=== PATIENT | female | born 1960 | race Caucasian/White ===

== ENCOUNTER 2018-02-13 19:31 | Emergency (ER) | payer MEDICAID, OTHER ==
[~2018-02-13] VITALS: Ht 157.5 cm; Wt 111.1 kg
[2018-02-13 19:34] VITALS: BP 123/79
[2018-02-13 21:11] LABS: Basophils # (auto) 0 uL; Basophils % (auto) 0.4 % (0.0-2.0); Eosinophils # (auto) 0 uL; Eosinophils % (auto) 0.6 % (0.0-7.0); Hematocrit 37.9 % (36.0-46.0); Hemoglobin 12.4 g/dL (12.2-16.2); Lymphocytes # (auto) 0.6 uL; Mean Corpuscular Hemoglobin 27.3 pg (28.0-32.0); Mean Corpuscular Hgb Conc. 32.8 g/dL (32.0-36.0); Mean Corpuscular Volume 83.3 fL (80.0-100.0); Monocytes # (auto) 0.5 uL; Monocytes % (auto) 6.6 % (0.0-12.0); Neutrophils # (auto) 6.9 uL; Neutrophils % (auto) 85.4 % (37.0-80.0); Nucleated Red Blood Cells % 0.1 %; Platelet Count (auto) 344 10^3/uL (140-450); Red Blood Cells 4.55 10^6/uL (4.0-5.20); Red Cell Distribution Width 14.5 % (11.8-14.3); White Blood Cell 8.1 10^3/uL (4.4-10.8)
[2018-02-13 21:19] LABS: INR 1.03 (0.9-1.15); Partial Thromboplastin Time 33.6 sec (23.78-33.04)
[2018-02-13 21:41] LABS: Alanine Aminotransferase 13 U/L (13-56); Albumin 2.8 g/dL (3.4-5.0); Alkaline Phosphatase 74 U/L (45-117); Anion Gap 9 (5-15); Aspartate Aminotransferase 10 U/L (15-37); BUN/Creatinine Ratio 19.4; Bilirubin, Total 0.4 mg/dL (0.2-1.0); Blood Urea Nitrogen 13 mg/dL (7-18); Calcium 8.5 mg/dL (8.5-10.1); Carbon Dioxide 22 mmol/L (21-32); Chloride 107 mmol/L (98-107); GFR African American 116 mL/min; GFR Non-African American 96 mL/min; Glucose 96 mg/dL (74-106); Potassium 3.9 mmol/L (3.5-5.1); Sodium 138 mmol/L (136-145); Total Protein 8.3 g/dL (6.4-8.2)
== END 2018-02-14 00:28 | disposition left against medical advice (07) ==
LOC: EDBD 19:31 → ER 19:31
DX: R53.1 Weakness (principal); Z53.21 Procedure and treatment not carried out due to patient leaving prior to being seen by health care provider
CPT/HCPCS: 36415; 80053; 83735; 83880; 84484; 85025; 85610; 85730; 93005

== ENCOUNTER 2018-05-25 23:53 | Inpatient (IN) | payer MEDICAID ==
[~2018-05-25] VITALS: Ht 157.5 cm; Wt 100.5 kg
[2018-05-26 01:46] LABS: Basophils # (auto) 0.1 uL; Basophils % (auto) 0.7 % (0.0-2.0); Hemoglobin 12.6 g/dL (12.2-16.2); Lymphocytes # (auto) 0.7 uL
[2018-05-26 01:48] LABS: Eosinophils # (auto) 0.1 uL; Eosinophils % (auto) 1.5 % (0.0-7.0); Hematocrit 38.9 % (36.0-46.0); Lymphocytes % (auto) 7.1 % (10.0-50.0); Mean Corpuscular Hemoglobin 27.3 pg (28.0-32.0); Mean Corpuscular Hgb Conc. 32.4 g/dL (32.0-36.0); Mean Corpuscular Volume 84.1 fL (80.0-100.0); Monocytes # (auto) 0.5 uL; Monocytes % (auto) 5.2 % (0.0-12.0); Neutrophils # (auto) 8.4 uL; Neutrophils % (auto) 85.5 % (37.0-80.0); Platelet Count (auto) 489 10^3/uL (140-450); Red Blood Cells 4.63 10^6/uL (4.0-5.20); Red Cell Distribution Width 16.7 % (11.8-14.3); White Blood Cell 9.9 10^3/uL (4.4-10.8)
[2018-05-26 02:02] LABS: Alanine Aminotransferase 13 U/L (13-56); Albumin 2.6 g/dL (3.4-5.0); Anion Gap 13 (5-15); Aspartate Aminotransferase 12 U/L (15-37); BUN/Creatinine Ratio 7.8; Blood Urea Nitrogen 30 mg/dL (7-18); Carbon Dioxide 19 mmol/L (21-32); Chloride 105 mmol/L (98-107); GFR African American 15 mL/min; GFR Non-African American 13 mL/min; Glucose 114 mg/dL (74-106); Sodium 137 mmol/L (136-145)
[2018-05-26 02:06] LABS: Alkaline Phosphatase 79 U/L (45-117); Bilirubin, Total 0.7 mg/dL (0.2-1.0); Total Protein 8.3 g/dL (6.4-8.2)
[2018-05-26 04:44] LABS: Urine Amorphous Crystal MOD /hpf (None Seen); Urine Bacteria MANY /hpf (None Seen); Urine Blood 1+ /uL (Negative); Urine Mucus FEW (None Seen); Urine Specific Gravity 1.023 (1.001-1.035); Urine WBC 42 /hpf (0 - 5)
[2018-05-26] MEDS ORDERED: methylPREDNISolone SOD SUCC 125 MG/2 ML VL IV ONE (06:00)
[2018-05-26] MEDS ORDERED: ACETAMINOPHEN 325 MG TAB PO PRN (06:00)
[2018-05-26] MEDS ORDERED: HYDROcodone-ACET 5/325MG TAB PO PRN (06:00)
[2018-05-26] MEDS: cefTRIAXone 1GM/10ml IVPUSH 10 ML IV SCH (09:05)
[2018-05-26 09:48] LABS: Protein, Urine 264.4 mg/dL (0.0-11.9)
[2018-05-26] MEDS: PANTOPRAZOLE 40 MG TAB PO SCH (10:26)
[2018-05-26 11:40] LABS: Hepatitis A Ab IgM Negative
[2018-05-26 11:50] LABS: Hepatitis C Antibody Negative (Negative)
[2018-05-26 12:00] VITALS: BP 116/63
[2018-05-26 13:40] LABS: BUN/Creatinine Ratio 10.9; Calcium 8.9 mg/dL (8.5-10.1); Potassium 4.1 mmol/L (3.5-5.1)
[2018-05-26] MEDS: SODIUM CHLORIDE 0.9% 1,000 ML IV SCH ×2 (14:00→20:50)
[2018-05-26 14:18] LABS: INR 1.04 (0.9-1.15); Partial Thromboplastin Time 33.4 sec (23.78-33.04); Prothrombin Time 11.1 sec (9.27-12.13)
[2018-05-26 16:35] VITALS: BP 110/57
[2018-05-26 17:36] LABS: Amphetamine Screen, Urine POSITIVE (NEGATIVE); Barbiturate Scree,Urine NEGATIVE (NEGATIVE); Benzodiazephine Screen, Urine NEGATIVE (NEGATIVE); Cannabinoid Screen, Urine NEGATIVE (NEGATIVE); Cocaine Screen, Urine NEGATIVE (NEGATIVE); Opiate Scree,Urine NEGATIVE (NEGATIVE); Phencyclidine Screen, Urine NEGATIVE (NEGATIVE)
[2018-05-26 20:47] LABS: Hepatitis B Surface Antigen Negative (Negative)
[2018-05-26 20:48] LABS: Hepatitis B Core IgM Negative
[2018-05-26] MEDS: TEMAZEPAM 15 MG CAP PO PRN (20:50)
[2018-05-26] MEDS: ONDANSETRON HCL 4 MG/2 ML VIAL IV PRN (20:51)
[2018-05-26] MEDS: MORPHINE SULFATE 4 MG/ML SYR/VIAL IV PRN (20:51)
[2018-05-26 23:29] VITALS: BP 113/63
[2018-05-27 05:58] VITALS: BP 104/68
[2018-05-27 06:42] LABS: Basophils # (auto) 0 uL; Eosinophils # (auto) 0 uL; Hemoglobin 11.3 g/dL (12.2-16.2); Lymphocytes # (auto) 0.7 uL; Mean Corpuscular Volume 84.2 fL (80.0-100.0); Monocytes # (auto) 0.9 uL
[2018-05-27 06:44] LABS: Basophils % (auto) 0.1 % (0.0-2.0); Hematocrit 34.3 % (36.0-46.0); Lymphocytes % (auto) 4.5 % (10.0-50.0); Mean Corpuscular Hemoglobin 27.8 pg (28.0-32.0); Mean Corpuscular Hgb Conc. 32.9 g/dL (32.0-36.0); Monocytes % (auto) 5.4 % (0.0-12.0); Neutrophils # (auto) 14.7 uL; Platelet Count (auto) 469 10^3/uL (140-450); Red Blood Cells 4.08 10^6/uL (4.0-5.20); Red Cell Distribution Width 16.6 % (11.8-14.3); White Blood Cell 16.3 10^3/uL (4.4-10.8)
[2018-05-27 07:09] LABS: Albumin 2.2 g/dL (3.4-5.0); BUN/Creatinine Ratio 18.8; Bilirubin, Total 0.2 mg/dL (0.2-1.0); Calcium 8.8 mg/dL (8.5-10.1); Phosphorus 3.3 mg/dL (2.5-4.90); Potassium 4.2 mmol/L (3.5-5.1); Total Protein 7.5 g/dL (6.4-8.2)
[2018-05-27 09:00] VITALS: BP 112/62
[2018-05-27] MEDS ORDERED: MIDAZOLAM HCL 1MG/1ML-2 ML VIAL ONE (09:22)
[2018-05-27] MEDS ORDERED: fentaNYL CITRATE 100 MCG/2 ML VL ONE (09:22)
[2018-05-27] MEDS: cefTRIAXone 1GM/10ml IVPUSH 10 ML IV SCH (10:10)
[2018-05-27] MEDS: PANTOPRAZOLE 40 MG TAB PO SCH (10:12)
[2018-05-27] MEDS ORDERED: LIDOCAINE 2% (LOCAL ANESTH.) PF 5ml SDV ONE ×2 (10:18→10:41)
[2018-05-27] MEDS: MORPHINE SULFATE 4 MG/ML SYR/VIAL IV PRN ×2 (12:28→21:04)
[2018-05-27] MEDS ORDERED: FUROSEMIDE 20 MG/2 ML VIAL IV ONE (12:30)
[2018-05-27 13:00] VITALS: BP 97/58
[2018-05-27 15:36] LABS: BUN/Creatinine Ratio 17.5; Calcium 8.4 mg/dL (8.5-10.1)
[2018-05-27 17:11] VITALS: BP 107/66
[2018-05-27] MEDS: SODIUM CHLORIDE 0.9% 1,000 ML IV SCH (18:21)
[2018-05-27 19:13] LABS: Basophils # (auto) 0 uL; Eosinophils # (auto) 0 uL; Lymphocytes # (auto) 0.9 uL
[2018-05-27 19:14] LABS: Basophils % (auto) 0.4 % (0.0-2.0); Eosinophils % (auto) 0.4 % (0.0-7.0); Hematocrit 36.4 % (36.0-46.0); Hemoglobin 11.6 g/dL (12.2-16.2); Lymphocytes % (auto) 9.8 % (10.0-50.0); Mean Corpuscular Hemoglobin 27.2 pg (28.0-32.0); Mean Corpuscular Volume 85.1 fL (80.0-100.0); Monocytes # (auto) 0.6 uL; Monocytes % (auto) 6.5 % (0.0-12.0); Neutrophils # (auto) 7.7 uL; Neutrophils % (auto) 82.9 % (37.0-80.0); Platelet Count (auto) 462 10^3/uL (140-450); Red Blood Cells 4.27 10^6/uL (4.0-5.20); Red Cell Distribution Width 16.7 % (11.8-14.3); White Blood Cell 9.3 10^3/uL (4.4-10.8)
[2018-05-27 19:53] LABS: Urine Bacteria NONE SEEN /hpf (None Seen); Urine Blood Negative /uL (Negative); Urine Specific Gravity 1.004 (1.001-1.035); Urine WBC 1 /hpf (0 - 5)
[2018-05-27] MEDS: ONDANSETRON HCL 4 MG/2 ML VIAL IV PRN (21:04)
[2018-05-27] MEDS: TEMAZEPAM 15 MG CAP PO PRN (21:04)
[2018-05-27 22:00] VITALS: BP 113/68
[2018-05-28] MEDS: MORPHINE SULFATE 4 MG/ML SYR/VIAL IV PRN ×3 (01:19→20:00)
[2018-05-28 05:18] VITALS: BP 127/74
[2018-05-28] MEDS: SODIUM CHLORIDE 0.9% 1,000 ML IV SCH ×2 (05:46→19:39)
[2018-05-28 08:28] LABS: Basophils # (auto) 0.1 uL; Eosinophils # (auto) 0 uL; Eosinophils % (auto) 0.3 % (0.0-7.0); Hematocrit 37.5 % (36.0-46.0); Hemoglobin 12.3 g/dL (12.2-16.2); Lymphocytes # (auto) 0.7 uL; Lymphocytes % (auto) 9.5 % (10.0-50.0); Mean Corpuscular Hemoglobin 27.5 pg (28.0-32.0); Mean Corpuscular Hgb Conc. 32.7 g/dL (32.0-36.0); Mean Corpuscular Volume 84.1 fL (80.0-100.0); Monocytes # (auto) 0.6 uL; Monocytes % (auto) 7.7 % (0.0-12.0); Neutrophils # (auto) 5.9 uL; Neutrophils % (auto) 81.5 % (37.0-80.0); Platelet Count (auto) 446 10^3/uL (140-450); Red Blood Cells 4.46 10^6/uL (4.0-5.20); Red Cell Distribution Width 16.7 % (11.8-14.3); White Blood Cell 7.3 10^3/uL (4.4-10.8)
[2018-05-28 08:43] VITALS: BP 102/63
[2018-05-28 08:47] LABS: BUN/Creatinine Ratio 23.1; Calcium 8.7 mg/dL (8.5-10.1); Potassium 4.4 mmol/L (3.5-5.1)
[2018-05-28] MEDS: PANTOPRAZOLE 40 MG TAB PO SCH (10:01)
[2018-05-28] MEDS: cefTRIAXone 1GM/10ml IVPUSH 10 ML IV SCH (10:01)
[2018-05-28] MEDS ORDERED: predniSONE 5 MG TAB PO ONE (12:45)
[2018-05-28] MEDS ORDERED: METHOTREXATE 2.5 MG TAB PO SCH (12:45)
[2018-05-28 13:46] VITALS: BP 139/79
[2018-05-28 17:14] VITALS: BP 107/68
[2018-05-28 22:00] VITALS: BP 131/79
[2018-05-29] MEDS: TEMAZEPAM 15 MG CAP PO PRN ×2 (00:59→21:52)
[2018-05-29 05:00] VITALS: BP 139/69
[2018-05-29] MEDS: cefTRIAXone 1GM/10ml IVPUSH 10 ML IV SCH (08:58)
[2018-05-29] MEDS: PANTOPRAZOLE 40 MG TAB PO SCH (08:59)
[2018-05-29] MEDS: SODIUM CHLORIDE 0.9% 1,000 ML IV SCH ×2 (08:59→21:51)
[2018-05-29] MEDS: predniSONE 5 MG TAB PO SCH (08:59)
[2018-05-29 09:05] VITALS: BP 115/66
[2018-05-29] MEDS: MORPHINE SULFATE 4 MG/ML SYR/VIAL IV PRN (09:09)
[2018-05-29 10:02] LABS: Basophils # (auto) 0 uL; Eosinophils # (auto) 0 uL; Eosinophils % (auto) 0.4 % (0.0-7.0); Hematocrit 37.9 % (36.0-46.0); Hemoglobin 12.7 g/dL (12.2-16.2); Lymphocytes # (auto) 0.8 uL; Lymphocytes % (auto) 16.5 % (10.0-50.0); Mean Corpuscular Hemoglobin 27.8 pg (28.0-32.0); Mean Corpuscular Hgb Conc. 33.6 g/dL (32.0-36.0); Mean Corpuscular Volume 82.9 fL (80.0-100.0); Monocytes # (auto) 0.5 uL; Monocytes % (auto) 10.7 % (0.0-12.0); Neutrophils # (auto) 3.4 uL; Neutrophils % (auto) 71.4 % (37.0-80.0); Nucleated Red Blood Cells % 0.1 %; Platelet Count (auto) 427 10^3/uL (140-450); Red Blood Cells 4.57 10^6/uL (4.0-5.20); Red Cell Distribution Width 16.2 % (11.8-14.3); White Blood Cell 4.8 10^3/uL (4.4-10.8)
[2018-05-29 10:20] LABS: BUN/Creatinine Ratio 21.7; Calcium 8.7 mg/dL (8.5-10.1); Potassium 3.9 mmol/L (3.5-5.1)
[2018-05-29] MEDS ORDERED: HYDROcodone-ACET 5/325MG TAB PO PRN (11:30)
[2018-05-29] MEDS ORDERED: HYDROcodone-ACET 7.5/325MG TAB PO PRN (11:30)
[2018-05-29 13:00] VITALS: BP 123/78
[2018-05-29] MEDS ORDERED: METH2.5T3 PO (16:05)
[2018-05-29] MEDS ORDERED: PRE5T PO (16:05)
[2018-05-29] MEDS ORDERED: PANT40T PO (16:05)
[2018-05-29] MEDS ORDERED: CIP500T PO (16:05)
[2018-05-29 17:04] VITALS: BP 111/58
[2018-05-29] MEDS: CIPROFLOXACIN HCL 500 MG TAB PO SCH (21:51)
[2018-05-29 21:57] VITALS: BP 131/81
[2018-05-30 05:00] VITALS: BP 124/71
[2018-05-30 06:00] VITALS: BP 101/68
[2018-05-30 08:00] VITALS: BP 101/68
[2018-05-30 10:23] LABS: Basophils # (auto) 0.1 uL; Basophils % (auto) 1.2 % (0.0-2.0); Eosinophils # (auto) 0.1 uL; Eosinophils % (auto) 1.9 % (0.0-7.0); Hematocrit 37.9 % (36.0-46.0); Hemoglobin 12.8 g/dL (12.2-16.2); Lymphocytes % (auto) 17.6 % (10.0-50.0); Mean Corpuscular Hemoglobin 28.1 pg (28.0-32.0); Mean Corpuscular Hgb Conc. 33.8 g/dL (32.0-36.0); Mean Corpuscular Volume 83.2 fL (80.0-100.0); Monocytes # (auto) 0.4 uL; Monocytes % (auto) 7.1 % (0.0-12.0); Neutrophils # (auto) 3.9 uL; Neutrophils % (auto) 72.2 % (37.0-80.0); Nucleated Red Blood Cells % 0.3 %; Platelet Count (auto) 392 10^3/uL (140-450); Red Blood Cells 4.55 10^6/uL (4.0-5.20); Red Cell Distribution Width 16.5 % (11.8-14.3); White Blood Cell 5.5 10^3/uL (4.4-10.8)
[2018-05-30] MEDS: CIPROFLOXACIN HCL 500 MG TAB PO SCH (10:40)
[2018-05-30] MEDS: predniSONE 5 MG TAB PO SCH (10:40)
[2018-05-30] MEDS: PANTOPRAZOLE 40 MG TAB PO SCH (10:40)
[2018-05-30] MEDS: SODIUM CHLORIDE 0.9% 1,000 ML IV SCH (10:41)
[2018-05-30 11:42] LABS: Calcium 8.7 mg/dL (8.5-10.1)
[2018-05-30 13:00] VITALS: BP 121/83
[2018-05-30 13:56] VITALS: BP 121/83
== END 2018-05-30 15:00 | disposition home or self-care (01) | DRG 463 ==
LOC: ER 23:54 → OVERFLOW 23:55 → WEST WING 05-26 12:02
PROVIDERS: ADMIT Nurse Practitioner; ATTEND Internal Medicine
PROC: 0TB13ZX Excision of Left Kidney, Percutaneous Approach, Diagnostic (ICD-10-PCS; principal; 2018-05-28)
DX: N39.0 Urinary tract infection, site not specified (principal); N17.0 Acute kidney failure with tubular necrosis; N14.2 Nephropathy induced by unspecified drug, medicament or biological substance; E66.01 Morbid (severe) obesity due to excess calories; Z68.41 Body mass index [BMI] 40.0-44.9, adult; M06.9 Rheumatoid arthritis, unspecified; M19.90 Unspecified osteoarthritis, unspecified site; T39.395A Adverse effect of other nonsteroidal anti-inflammatory drugs [NSAID], initial encounter; E88.09 Other disorders of plasma-protein metabolism, not elsewhere classified; T38.0X5A Adverse effect of glucocorticoids and synthetic analogues, initial encounter; B96.20 Unspecified Escherichia coli [E. coli] as the cause of diseases classified elsewhere; F15.90 Other stimulant use, unspecified, uncomplicated; R80.9 Proteinuria, unspecified; Z79.1 Long term (current) use of non-steroidal anti-inflammatories (NSAID); Y92.89 Other specified places as the place of occurrence of the external cause
CPT/HCPCS: 10022; 36415; 71045; 74176; 76775; 77012; 80048; 80053; 80074; 80307; 81001; 82570; 83520; 83880; 84100; 84156; 84300; 84484; 85025; 85610; 85652; 85730; 86038; 86141; 86160; 86200; 86256; 86431; 87086; 87088; 87186; 93005; 96374; 96375; J0696; J2001; J2250; J2405

== ENCOUNTER 2020-07-11 08:50 | Emergency (ER) | payer MEDICAID ==
[~2020-07-11] VITALS: Ht 157.5 cm; Wt 106.6 kg
[~2020-07-11 08:50] MED LIST: CIP500T PO; METH2.5T PO; PANT40T PO; PRE5T PO
[2020-07-11] MEDS ORDERED: SODIUM CHLORIDE 0.9% 1,000 ML IV ONE (09:30)
[2020-07-11 10:16] LABS: Basophils # (auto) 0.1 10 ^3/uL (0-0.2); Basophils % (auto) 0.9 % (0.0-2.0); Eosinophils # (auto) 0.2 10 ^3/uL (0-0.8); Eosinophils % (auto) 1.9 % (0.0-7.0); Hematocrit 45.8 % (36.0-46.0); Hemoglobin 15.2 g/dL (12.2-16.2); Lymphocytes # (auto) 0.8 10 ^3/uL (0.4-5.4); Lymphocytes % (auto) 9.2 % (10.0-50.0); Mean Corpuscular Hemoglobin 28.6 pg (28.0-32.0); Mean Corpuscular Hgb Conc. 33.1 g/dL (32.0-36.0); Mean Corpuscular Volume 86.3 fL (80.0-100.0); Monocytes # (auto) 0.9 10 ^3/uL (0-1.3); Monocytes % (auto) 10.3 % (0.0-12.0); Neutrophils # (auto) 6.9 10 ^3/uL (1.6-8.6); Neutrophils % (auto) 77.7 % (37.0-80.0); Nucleated Red Blood Cells % 0.2 %; Platelet Count (auto) 246 10^3/uL (140-450); Red Cell Distribution Width 17.1 % (11.8-14.3); White Blood Cell 8.8 10^3/uL (4.4-10.8)
[2020-07-11] MEDS ORDERED: methylPREDNISolone SOD SUCC 125 MG/2 ML VL IV ONE (10:30)
[2020-07-11] MEDS ORDERED: HYDROcodone-ACET 10/325MG TAB PO ONE (10:30)
[2020-07-11 10:37] LABS: Albumin 2.8 g/dL (3.4-5.0); Anion Gap 8 (5-15); Blood Urea Nitrogen 16 mg/dL (7-18); Calcium 9.3 mg/dL (8.5-10.1); Carbon Dioxide 26 mmol/L (21-32); Chloride 104 mmol/L (98-107); Glucose 98 mg/dL (74-106); Potassium 4.2 mmol/L (3.5-5.1); Sodium 138 mmol/L (136-145)
[2020-07-11 10:42] LABS: Alanine Aminotransferase 23 U/L (13-56); Alkaline Phosphatase 80 U/L (45-117); Aspartate Aminotransferase 15 U/L (15-37); BUN/Creatinine Ratio 11.2; Bilirubin, Total 0.9 mg/dL (0.2-1.0); GFR African American 48 mL/min; GFR Non-African American 40 mL/min; Total Protein 7.3 g/dL (6.4-8.2)
[2020-07-11 12:00] VITALS: BP 132/64
== END 2020-07-11 13:00 | disposition home or self-care (01) ==
LOC: ER 08:50 → EDBD 08:50 → ER 13:00
DX: I99.9 Unspecified disorder of circulatory system (principal); M79.661 Pain in right lower leg; E44.0 Moderate protein-calorie malnutrition; J45.909 Unspecified asthma, uncomplicated; Z68.41 Body mass index [BMI] 40.0-44.9, adult
CPT/HCPCS: 36415; 71045; 73700; 80053; 84484; 85025; 96361; 96374; 99285; J2930; J7030

== ENCOUNTER 2020-09-04 15:44 | Emergency (ER) | payer SELFPAY ==
[~2020-09-04] VITALS: Ht 170.2 cm; Wt 113.4 kg
[2020-09-04 23:42] VITALS: BP 92/45
== END 2020-09-05 00:38 | disposition home or self-care (01) ==
LOC: EDBD 15:44 → ER 15:48
DX: U07.1 COVID-19 (principal); J18.9 Pneumonia, unspecified organism
CPT/HCPCS: 36415; 71045; 87426; 99284; C9803; U0003; 80053

== ENCOUNTER 2020-12-29 15:19 | Emergency (ER) | payer OTHER ==
[~2020-12-29] VITALS: Ht 165.1 cm; Wt 99.8 kg
[2020-12-29] MEDS ORDERED: HYDROmorphone HCL 2 MG/ML VL IV ONE (17:00)
[2020-12-29] MEDS ORDERED: ONDANSETRON HCL 4 MG/2 ML VIAL IV ONE (17:00)
[2020-12-29 19:23] VITALS: BP 117/63
== END 2020-12-29 19:36 ==
LOC: EDBD 15:19 → ER 15:19
DX: M48.56XA Collapsed vertebra, not elsewhere classified, lumbar region, initial encounter for fracture (principal); R07.89 Other chest pain; R53.1 Weakness
CPT/HCPCS: 71045; 71250; 72131; 72192; 96374; 96375; 99285; J1170; J2405